=== PATIENT | female | born 1950 | race African-American/Black ===

== ENCOUNTER 2020-09-07 15:07 | Outpatient (CLI) | payer MEDICARE | END 2020-09-07 15:08 | disposition home or self-care (01) | LOC: BICRAD 15:07 | PROVIDERS: ATTEND Family Medicine | DX: M51.26 Other intervertebral disc displacement, lumbar region (principal) | CPT/HCPCS: 72100 ==

== ENCOUNTER 2021-09-09 14:04 | Outpatient (CLI) | payer MEDICARE | END 2021-09-09 14:05 | disposition home or self-care (01) | LOC: TBSIIMAG 14:04 | PROVIDERS: ATTEND Anesthesiology | DX: M54.50 Low back pain, unspecified (principal); G89.29 Other chronic pain; M47.816 Spondylosis without myelopathy or radiculopathy, lumbar region; M51.36 Other intervertebral disc degeneration, lumbar region; M47.817 Spondylosis without myelopathy or radiculopathy, lumbosacral region | CPT/HCPCS: 72148 ==